=== PATIENT | male | born 1985 | race Two or more races ===

== ENCOUNTER 2022-06-21 08:38 | Emergency (ER) | payer SELFPAY ==
[~2022-06-21] VITALS: Ht 175.3 cm; Wt 93.0 kg
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
--- NOTE | 2022-06-21 08:47 | NUR ---
dr callahan at bedside for eval.
[2022-06-21] MEDS ORDERED: IV NS 0.9% 1,000 ML BAG IV ONE (09:00)
[2022-06-21] MEDS ORDERED: CEFTRIAXONE 1GM BAG (ER ONLY) 50 ML IV ONE (09:00)
[2022-06-21] MEDS ORDERED: VANCOMYCIN 1 GM in IV D5W 250 ML IV ONE (09:00)
[2022-06-21] MEDS ORDERED: ACETAMINOPHEN 325 MG TABLET PO ONE (09:00)
--- NOTE | 2022-06-21 09:00 | NUR ---
iv line started blood drawn and sent to lab.
[2022-06-21] MEDS ORDERED: ACETAMINOPHEN 325 MG TABLET ONE (09:01)
--- NOTE | 2022-06-21 09:17 | NUR ---
radiology at bedside for Chana rushingay.
[2022-06-21] MEDS ORDERED: CEPH500C2 PO ×2 (09:27→10:34)
[2022-06-21] MEDS ORDERED: IBUP-1955 PO ×2 (09:27→10:34)
[2022-06-21] MEDS ORDERED: SULF1TAB48 PO ×2 (09:27→10:34)
--- NOTE | 2022-06-21 09:27 | NUR ---
covid swab done and sent to lab
[2022-06-21 09:30] LABS: BASOPHILS % (AUTO) 0.2 % (0.0-2.0); EOSINOPHILS % (AUTO) 0.6 % (0.0-6.0); HEMATOCRIT 35 % (39-51); HEMOGLOBIN 11.8 g/dL (13.5-17.5); LYMPHOCYTES # (AUTO) 1.8 K/uL (0.8-4.8); LYMPHOCYTES % (AUTO) 13.9 % (20.0-44.0); MEAN CORPUSCULAR HGB CONC 34 g/dl (31.0-36.0); MEAN CORPUSCULAR VOLUME 86 fL (80-96); MONOCYTES # (AUTO) 1.1 K/uL (0.1-1.30); MONOCYTES % (AUTO) 8.7 % (2.0-12.0); NEUTROPHILS # (AUTO) 10.1 K/uL (1.8-8.9); NEUTROPHILS % (AUTO) 76.6 % (43.0-81.0); PLATELET COUNT (AUTO) 315 K/uL (150-450); RED BLOOD CELL COUNT(AUTO) 4.13 MIL/uL (4.5-6.0); WHITE BLOOD COUNT (AUTO) 13.2 K/uL (4.3-11.0)
[2022-06-21 09:38] LABS: BILIRUBIN,URINE NEGATIVE (NEGATIVE); COLOR,URINE YELLOW (YELLOW); LEUKOCYTE ESTERASE ,URINE NEGATIVE (NEGATIVE); NITRITE, URINE NEGATIVE (NEGATIVE); PH,URINE 6.5 (5.0-8.0); PROTEIN,URINE TRACE mg/dl (NEGATIVE); UGLUCOSE NEGATIVE (NEGATIVE)
[2022-06-21 09:43] LABS: CALCIUM, SERUM 8.7 mg/dL (8.5-10.1); CARBON DIOXIDE 32 mmol/L (21-32); CHLORIDE 96 mmol/L (98-107); CREATININE 0.9 mg/dL (0.6-1.3); GLUCOSE 110 mg/dL (74-106); POTASSIUM 2.9 mmol/L (3.5-5.1); SODIUM SERUM 134 mmol/L (136-145); UREA NITROGEN, BLOOD 6 mg/dL (7-18)
[2022-06-21 09:48] LABS: CREATINE KINASE, TOTAL 119 U/L (39-308)
[2022-06-21 09:57] LABS: ALANINE AMINOTRANSFERASE 33 U/L (12-78); ALKALINE PHOSPHATASE 94 U/L (46-116); ASPARTATE AMINOTRANSFERASE 24 U/L (15-37); BILIRUBIN,DIRECT 0.2 mg/dL (0.0-0.2); BILIRUBIN,TOTAL 0.6 mg/dL (0.2-1.0); TOTAL PROTEIN, SERUM 7.4 g/dL (6.4-8.2)
[2022-06-21 10:03] LABS: BACTERIA,URINE Few /HPF (None Seen); SQUAMOUS EPITHELIAL CELL,UR Rare /HPF (None Seen)
[2022-06-21] MEDS ORDERED: KETOROLAC TROMETHAMINE 15 MG/ML VIAL ONE (10:29)
[2022-06-21 10:30] LABS: ALCOHOL, BLOOD < 3 mg/dL (0-0)
[2022-06-21] MEDS ORDERED: KETOROLAC TROMETHAMINE INJ 30 MG/ML VIAL IV ONE (10:30)
[2022-06-21 10:55] VITALS: BP 146/89
--- NOTE | 2022-06-21 10:55 | NUR ---
Patient discharged to home in stable condition. Written and verbal after care instructions given. Patient verbalizes understanding of instruction.IV removed. Catheter intact and site benign. Pressure and 4x4 applied to site. No bleeding noted.
--- NOTE | 2022-06-22 13:55 | NUR ---
CALLED PATIENT TO INFORM OF BLOOD CULTURE RESULTS, CONTACT NUMBER NOT REACHABLE. DR BELCHER AWARE.
== END 2022-06-21 10:55 | disposition home or self-care (01) ==
LOC: ER 08:48
DX: L03.116 Cellulitis of left lower limb (principal); L03.211 Cellulitis of face; S99.912A Unspecified injury of left ankle, initial encounter; V19.9XXA Pedal cyclist (driver) (passenger) injured in unspecified traffic accident, initial encounter; Y93.89 Activity, other specified; E87.6 Hypokalemia; R00.0 Tachycardia, unspecified; R50.9 Fever, unspecified; F12.10 Cannabis abuse, uncomplicated; F15.10 Other stimulant abuse, uncomplicated; Z20.822 Contact with and (suspected) exposure to COVID-19; D64.9 Anemia, unspecified
CPT/HCPCS: 99285; 96365; 96367; 96375; 93005; 71045; 73610; 84145; 85025; 80048; 87077; 82550; 87040 ×2; 87086; 83605; 80076; 81001; 36415; 84484; 85730; 87426; 80320; 80307; J3370; J7030; J7050; J0696; J1885; C9803; G0480; J7060